=== PATIENT | male | born 1970 ===

== ENCOUNTER 2021-08-24 08:58 | Emergency (ER) | payer SELFPAY ==
[2021-08-24] MEDS ORDERED: amLODIPine 5 MG TAB PO ONE (10:04)
--- NOTE | 2021-08-24 10:04 | Emergency Department Report ---
ED General Adult HPI - General Chief complaint: Extremity Injury, Upper Stated complaint: POSS STROKE Time Seen by Provider: 08/24/21 09:55 Source: patient Mode of arrival: Ambulatory Limitations: No Limitations - History of Present Illness Initial comments: The patient presents to the emergency department the chief complaint of left arm pain and numbness that started while he was at work. 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 Patient denies any recent injury denies any slurred speech or facial weakness. -: Gradual Location: upper extremity Severity scale (0 -10): 7 Quality: aching, sharp Consistency: constant Improves with: none Worsens with: none Associated Symptoms: denies other symptoms Treatments Prior to Arrival: none - Related Data Previous Rx's Medication Instructions Recorded Last Taken Type Amlodipine Besylate [Norvasc] 2.5 mg PO DAILY #30 tablet 08/24/21 Unknown Rx Ibuprofen [Motrin] 800 mg PO Q8HR PRN #30 tablet 08/24/21 Unknown Rx Prednisone [predniSONE 5 mg (6-Day 5 mg PO .TAPER #1 tab.ds.pk 08/24/21 Unknown Rx Pack, 21 Tabs)] Allergies Allergy/AdvReac Type Severity Reaction Status Date / Time Fish Containing Products Allergy Severe Swelling Verified 08/24/21 09:07 ED Review of Systems ROS: Stated complaint: POSS STROKE Other details as noted in HPI Comment: All other systems reviewed and negative Constitutional: denies: chills, fever Eyes: denies: eye pain, eye discharge, vision change ENT: denies: ear pain, throat pain Respiratory: denies: cough, shortness of breath, wheezing Cardiovascular: denies: chest pain, palpitations Endocrine: no symptoms reported Gastrointestinal: denies: abdominal pain, nausea, diarrhea Genitourinary: denies: urgency, dysuria Musculoskeletal: denies: back pain, joint swelling, arthralgia Skin: denies: rash, lesions Neurological: denies: headache, weakness, paresthesias Psychiatric: denies: anxiety, depression Hematological/Lymphatic: denies: easy bleeding, easy bruising ED Past Medical Hx - Past Medical History Previous Medical History?: Yes Hx Hypertension: Yes Hx Diabetes: Yes - Surgical History Past Surgical History?: Yes Additional Surgical History: left knee surgery - Medications Home Medications: Home Medications Medication Instructions Recorded Confirmed Last Taken Type Amlodipine Besylate [Norvasc] 2.5 mg PO DAILY #30 tablet 08/24/21 Unknown Rx Ibuprofen [Motrin] 800 mg PO Q8HR PRN #30 tablet 08/24/21 Unknown Rx Prednisone [predniSONE 5 mg (6-Day 5 mg PO .TAPER #1 tab.ds.pk 08/24/21 Unknown Rx Pack, 21 Tabs)] ED Physical Exam - General Limitations: No Limitations General appearance: alert, in no apparent distress - Head Head exam: Present: atraumatic, normocephalic - Eye Eye exam: Present: normal appearance, PERRL, EOMI - ENT ENT exam: Present: mucous membranes moist - Neck Neck exam: Present: normal inspection - Respiratory Respiratory exam: Present: normal lung sounds bilaterally. Absent: respiratory distress - Cardiovascular Cardiovascular Exam: Present: regular rate, normal rhythm. 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 Absent: motor sensory deficit (Normal [id number], finger-nose, rapid hand movement exam. Tapping of the C-spine at C5-C6 recreates numbness and pain in the left arm.) - Psychiatric Psychiatric exam: Present: normal affect, normal mood - Skin Skin exam: Present: warm, dry, intact, normal color. Absent: rash ED Course Vital Signs 08/24/21 08/24/21 08/24/21 09:01 09:05 09:25 Temperature 98.0 F 98 F Pulse Rate 59 L Respiratory 16 16 Rate Blood Pressure Blood Pressure 213/95 [Right] O2 Sat by Pulse 100 97 Oximetry 08/24/21 08/24/21 08/24/21 09:31 09:45 10:00 Temperature Pulse Rate Respiratory Rate Blood Pressure Blood Pressure [Right] O2 Sat by Pulse 98 98 100 Oximetry 08/24/21 08/24/21 08/24/21 10:10 10:11 10:25 Temperature Pulse Rate 52 L Respiratory Rate Blood Pressure 188/81 188/81 Blood Pressure [Right] O2 Sat by Pulse 98 99 Oximetry 08/24/21 08/24/21 08/24/21 10:31 10:45 11:01 Temperature Pulse Rate Respiratory Rate Blood Pressure 188/81 188/81 188/81 Blood Pressure [Right] O2 Sat by Pulse 99 98 98 Oximetry 08/24/21 11:08 Temperature Pulse Rate Respiratory Rate Blood Pressure Blood Pressure 167/77 [Right] O2 Sat by Pulse Oximetry ED Medical Decision Making - Lab Data Result diagrams: 08/24/21 10:25 08/24/21 10:25 - Radiology Data Radiology results: report reviewed [facility] [address] [place] [address] Cat Scan Report Signed Patient: ANDRIA HARDIN JR MR#: [id number] : 1970 Acct:[id number] Age/Sex: 50 / M ADM Date: 08/24/21 Loc: ED Attending Dr: Ordering Physician: NASIM FAIRCHILD MD Date of Service: 08/24/21 Procedure(s): CT cervical spine wo con Accession Number(s): [id number] cc: NASIM FAIRCHILD MD CT cervical spine wo con INDICATION / CLINICAL INFORMATION: 50 years Male; cervical radiculopathy. TECHNIQUE: Axial CT images of the cervical spine were obtained. Sagittal and coronal reformatted images were produced. All CT scans at this location are performed using CT dose reduction for ALARA by means of automated exposure control. COMPARISON: None available. FINDINGS: POST- SURGICAL CHANGES: None. ALIGNMENT: There is slight reversal the cervical lordosis without significant spondylolisthesis. VERTEBRAE: There are mild endplate changes anteriorly at C3-4 and C4-5. There is no clear CT evidence of acute fracture of the cervical spine. INTRAVERTEBRAL DISCS: The spondylosis at C3-4 effaces the ventral subarachnoid space with mild encroachment on the left lateral recess. Is also mild left foraminal narrowing. The spondylosis at C4-5 also appears to encroach on the left lateral recess at. The neural foramen appear patent. There appears be slight disc bulge at C5-6 without significant stenosis. The C6 as 7 and C7-T1 levels appear unremarkable. PARASPINAL SOFT TISSUES: No prevertebral soft tissue fluid collections are identified. ADDITIONAL FINDINGS: None. IMPRESSION: 1. There is no CT evidence of acute fracture involving cervical spine Signer Name: Carlos Bush MD Signed: 08/24/2021 11:00 AM Workstation Name: [id number] Transcribed By: MR Dictated By: Carlos Bush MD Electronically Authenticated By: aCrlos Bush MD Signed Date/Time: 08/24/21 1100 DD/ 1056 TD/TT: Print Cancel - Medical Decision Making Based off the patient's physical exam there was concerned that the patient could have a bulging disks or other causes of cervical radiculopathy Laboratory values were also obtained for further evaluation Patient labs reveal elevated liver enzymes. Upon questioning the patient about Tylenol alcohol use he denies any significant usage Also discussed with the patient that upon evaluation his blood pressure systolically was 188. Patient states he does not have a history hypertension but has not had a physical or primary care visit in quite some time. He does have diabetes. Discussed CT findings of cervical spine with the patient which shows bulging disc C6 as well to spondylolysis. And the need to follow-up with neurosurgery. Critical care attestation.: If time is entered above; I have spent that time in minutes in the direct care of this critically ill patient, excluding procedure time. ED Disposition Clinical Impression: Cervical radiculopathy at C6, Elevated blood pressure reading, Elevated liver enzymes Disposition: 01 HOME / SELF CARE / HOMELESS Is pt being admited?: No Does the pt Need Aspirin: No Condition: Stable Instructions: Cervical Radiculopathy Additional Instructions: return if worse Prescriptions: Ibuprofen [Motrin] 800 mg PO Q8HR PRN #30 tablet PRN Reason: Pain Amlodipine Besylate [Norvasc] 2.5 mg PO DAILY #30 tablet Prednisone [predniSONE 5 mg (6-Day Pack, 21 Tabs)] 5 mg PO .TAPER #1 tab.ds.pk Referrals: PRIMARY MD ANDRÉS [Primary Care Provider] - 3-5 Days MEENAKSHI WESTFALL II, MD [Staff Physician] - 3-5 Days [facility] [Provider Group] - 3-5 Days Time of Disposition: 11:39
--- NOTE | 2021-08-24 11:01 | Cat Scan Report ---
CT head/brain wo con INDICATION / CLINICAL INFORMATION: 50 years Male; arm numbness. TECHNIQUE: Routine CT head without contrast. All CT scans at this location are performed using CT dos e reduction for ALARA by means of automated exposure control. COMPARISON: None. FINDINGS: BRAIN / INTRACRANIAL CONTENTS: There is mild cerebral white matter disease including the periventricu lar regions which is nonspecific though may reflect microvascular angiopathy. The ventricular system is within normal limits in size and configuration. There is no clear CT evidence of acute intracrania l hemorrhage or significant mass effect. ORBITS: No significant abnormality of visualized orbits. SINUSES / MASTOIDS: No significant abnormality in the visualized paranasal sinuses or mastoid air gldays ls. CRANIOCERVICAL JUNCTION: No significant abnormality. ADDITIONAL FINDINGS: None. IMPRESSION: 1. There is mild cerebral white matter disease which is nonspecific as detailed above. Otherwise, the CT the brain appears unremarkable without evidence of acute intracranial hemorrhage. Signer Name: Carlos Bush MD Signed: 08/24/2021 10:56 AM Workstation Name: [id number]
[2021-08-24 11:02] LABS: Basophils # (Auto) 0.1 K/mm3 (0.0-0.1); Basophils % (Auto) 1.1 % (0.0-1.8); Eosinophils % (Auto) 0.8 % (0.0-4.3); Hematocrit 45.1 % (35.5-45.6); Hemoglobin 15.4 gm/dl (11.8-15.2); Lymphocytes # (Auto) 1.7 K/mm3 (1.2-5.4); Lymphocytes % (Auto) 35.4 % (13.4-35.0); Mean Corpuscular HGB Conc 34 % (32-34); Mean Corpuscular Volume 83 fl (84-94); Monocytes # (Auto) 0.5 K/mm3 (0.0-0.8); Monocytes % (Auto) 10.3 % (0.0-7.3); Platelet Count 285 K/mm3 (140-440); Red Blood Count 5.41 M/mm3 (3.65-5.03); Red Cell Distribution Width 12.7 % (13.2-15.2)
--- NOTE | 2021-08-24 11:05 | Cat Scan Report ---
CT cervical spine wo con INDICATION / CLINICAL INFORMATION: 50 years Male; cervical radiculopathy. TECHNIQUE: Axial CT images of the cervical spine were obtained. Sagittal and coronal reformatted images were pr oduced. All CT scans at this location are performed using CT dose reduction for ALARA by means of aut omated exposure control. COMPARISON: None available. FINDINGS: POST-SURGICAL CHANGES: None. ALIGNMENT: There is slight reversal the cervical lordosis without significant spondylolisthesis. VERTEBRAE: There are mild endplate changes anteriorly at C3-4 and C4-5. There is no clear CT evidence of acute fracture of the cervical spine. INTRAVERTEBRAL DISCS: The spondylosis at C3-4 effaces the ventral subarachnoid space with mild encroa chment on the left lateral recess. Is also mild left foraminal narrowing. The spondylosis at C4-5 als o appears to encroach on the left lateral recess at. The neural foramen appear patent. There appears be slight disc bulge at C5-6 without significant stenosis. The C6 as 7 and C7-T1 levels appear unremarkable. PARASPINAL SOFT TISSUES: No prevertebral soft tissue fluid collections are identified. ADDITIONAL FINDINGS: None. IMPRESSION: 1. There is no CT evidence of acute fracture involving cervical spine Signer Name: Carlos Bush MD Signed: 08/24/2021 11:00 AM Workstation Name: [id number]
[2021-08-24 11:09] VITALS: BP 167/77
[2021-08-24 11:13] LABS: Alanine Aminotransferase 118 units/L (7-56); Albumin 4.4 g/dL (3.9-5); BUN/Creatinine Ratio 13; Blood Urea Nitrogen 10 mg/dL (9-20); Calcium 9.3 mg/dL (8.4-10.2); Hemolysis Index 5
== END 2021-08-24 12:12 | disposition home or self-care (01) ==
LOC: ED 08:58
DX: M54.12 Radiculopathy, cervical region (principal); R03.0 Elevated blood-pressure reading, without diagnosis of hypertension; R94.5 Abnormal results of liver function studies; R51.9 Headache, unspecified; I10 Essential (primary) hypertension; E11.9 Type 2 diabetes mellitus without complications; Z98.890 Other specified postprocedural states; Z91.013 Allergy to seafood; Z79.899 Other long term (current) drug therapy
CPT/HCPCS: 36415; 70450; 72125; 80053; 82962; 85025; 99284